=== PATIENT | female | born 1945 | race Caucasian/White ===

== ENCOUNTER 2016-06-23 10:36 | Inpatient (IN) ==
[2016-06-23] MEDS ORDERED: Ondansetron 4 MG/2 ML VIAL IVP PRN (11:42)
[2016-06-23] MEDS ORDERED: Naloxone 0.4 MG/ML INJ IVP PRN (11:42)
--- NOTE | 2016-06-23 11:59 | Internal Med History&Physical ---
Date of Encounter: 06/23/16 Time of Encounter: 11:05 Internal Medicine - H&P: HPI Chief complaint: L wrist swelling and redness after dog bite, sub-optimal response to OP Rx Admitted From: Direct Admit Plans for Post Hospital Care: Home History of present illness: Ms. Spencer is a 70 year old female with medical history significant for hyperlipidemia presents with left wrist swelling and redness after dog bite 6 days ago. She was seperating 2 fighting dogs when she was bitten by one of the dogs. She was evaluated at a local ED on the same day. She was given Td and Augmentin, but was unable to fill the script until the following morning. By mid day, the area of redness and swelling had reached above the elbow. It was since regressed upon filling Augmentin prescription, but remains marked swollen and painful. She was given a dose of IM Ceftriaxone by her PCP yesterday. She reports 2 episodes of diaphoresis but she did not take her temperature at that time. She was evaluated by [facility] orthopedic surgeon this morning , temperature was documented as 100.3F at that visit. The surgeon called Hospitalist Service to assists with admission. She denies other symptoms. A 10- point ROS was performed. She is FULL CODE as per discussion. Medical history: Reports: arthritis, hyperlipidemia. Psychiatric history: Reports: no psych history Smoking Status: non-smoker Alcohol use: Reports: none Drug use: Reports: none Family history: son: diabetic, daughter: insomnia, brother: arthritis, sister: anxiety, hypothyroidism. ROS: A 10-point ROS was performed, positives and relevant negatives are detailed , system-symptom not mentioned is assumed negative unless otherwise stated. Positives: Left wrist swelling, redness, pain diaphoresis, fever. Negatives: No PND or orthopnea., no chest pain no sore-throat, no hemoptysis, hematemesis, or hematochezia, no abdominal pain or diarrhea, no urinary or new- onset neurological symptoms. Not in distress, elderly, non-toxic looking. Not pale, anicteric, afebrile, acyanotic. Moist mucosa. HEENT: No JVD, no cervical lymphadenopathy, Chest : CTAB, diminished generally, especially in the bases. Heart: RRR, HS1/2, no m/r/g. Abdomen: soft, non-tender, no masses, CARD FEEDER: AAO X 3, no gross focal neurological signs. Skin: swollen, erythematous raised lesion on the dorsolateral aspect of left wrist with punctaute open. Erythema up the forearm to just above the elbow is fading, redness is now limited to just above the wrost, Lesions remains raised, no discharge on mamual expression, moderate tenderness Extremities: Trace pedal edema, normal pedal pulses. left cubital and lateral axillary lymphadenopathy. IMP Dog bite cellulitis, sub-optimal response to out-patient care. Chronic morbidities Osteoarthritis Hyperlipidemia PLAN Admit IV Unasyn 3g q6h Ibuprofen and Toradol for pain control Orthopedic surgery plans OR session tomorrow for wash-out. NPO past midnight Elevate left hand-arm above heart level Continue essential medications of chronic morbidities. I discussed my assessment with the patient, she verbalized and is agreeable to admission. She is admitted given she has failed out-patient treatment. Past Med Surg Social Fam HX - Past Medical History Medical history: hyperlipidemia Psychiatric history: no psych history - Past Surgical History Surgical History: hysterectomy - Social History Smoking Status: Never smoker Smokeless Tobacco Status: No Alcohol use: none Drug use: none - Family History Mother Hx Family Cardiac Disorders: Yes (CHF) Hx Family Respiratory Disorders: Yes (Emphysema) Hx Family Endocrine Disorder: Yes (Diabetes) Father Hx Family Cardiac Disorders: Yes (HTN) Internal Medicine - H&P: Meds Atorvastatin Calcium [Lipitor] 20 mg PO HS 03/11/16 [History] Cholecalciferol (Vitamin D3) [Vitamin D] 2,000 unit PO DAILY 03/11/16 [History] Docusate Sodium [Stool Softener] 100 mg PO DAILY 03/11/16 [History] Gabapentin [Neurontin] 300 mg PO HS 03/11/16 [History] Glucosamine Sulfate Dipot Chlr [Glucosamine] 500 mg PO DAILY 03/11/16 [History] [place]ickory-3/Dha/Epa/Fish Oil [[place] 3 500 Softgel] 1 each PO BID 03/11/16 [History] Psyllium Husk [Metamucil] 425 gm PO DAILY 03/11/16 [History] Allergies sulfamethoxazole [From Bactrim] Allergy (Verified 03/11/16 09:48) See Comments trimethoprim [From Bactrim] Allergy (Verified 03/11/16 09:48) See Comments All Systems PM: A 10-system review of systems was performed and is negative for pertinent findings except as documented above in the HPI. - Constitutional Vitals: Temp Pulse Resp BP Pulse Ox 98.1 F 71 16 162/77 99 06/23/16 11:30 06/23/16 11:30 06/23/16 11:30 06/23/16 11:30 06/23/16 11:30 - VTE Reasons for not Prescribing Prophylaxis: Treatment not Indicated - Low risk for VTE
[2016-06-23] MEDS ORDERED: Ampicillin/Sulbactam 3,000 MG in 0.9 % Sodium Chloride Mini Bag 100 ML IVPB ONE (12:03)
[2016-06-23 14:02] LABS: Basophils % 0.5 %; Eosinophils % 0.7 %; Hematocrit 38.9 % (35.3-44.9); Immature Granulocytes % 0.5 % (0-4); Lymphocytes # 1.2 K/mcL (0.6-4.6); Lymphocytes % 21.3 %; Mean Corpuscular HGB Conc 33.4 g/dL (31.6-35.5); Mean Corpuscular Hemoglobin 29.9 pg (28.0-33.3); Mean Corpuscular Volume 89.4 fL (83.0-100.0); Mean Platelet Volume 9.3 fL (9.4-12.4); Monocytes # 0.4 K/mcL (0.0-1.3); Monocytes % 6.7 %; Neutrophils # 4.1 K/mcL (1.6-8.9); Platelet Count 335 K/mcL (140-400); Red Blood Count 4.35 M/mcL (3.82-4.97); Red Cell Distribution Width 13.3 % (11.5-14.5); Segmented Neutrophils % 70.3 %
[2016-06-23 14:16] LABS: BUN/Creatinine Ratio 17 (6-26); Blood Urea Nitrogen 11 mg/dL (7-20); Calcium 9.8 mg/dL (8.6-10.8); Carbon Dioxide 24 mEq/L (19-29); Chloride 103 mEq/L (98-109); Glucose 98 mg/dL (70-99); Osmolality,Calculated 289 (280-300); Sodium 140 mEq/L (136-145); eGFR For African Americans > 60 (> 60); eGFR For Non-African Americans > 60 (> 60)
[2016-06-23] MEDS: Ketorolac 30 MG/ML VIAL IVP PRN (14:59)
--- NOTE | 2016-06-23 17:33 | Orthopedic Consult Note ---
Date of Encounter: 06/23/16 Time of Encounter: 12:00 Assessment and Plan (1) Cellulitis of wrist Current Visit: Yes Status: Acute Left wrist dog bite with resultant cellulitis, nondisplaced distal radius fracture, and probable EPL injury I discussed the diagnoses with the patient in great detail. I did discuss the goals of treatment, the first and foremost being clearance of her infection. She is currently admitted and now on IV antibiotics. We will observe her progress and see how she responds. The patient is aware of the possible need for operative debridement and irrigation to assist in clearance of infection should IV antibiotics alone not be sufficient. The patient is aware of the risk of osteomyelitis given the injury she has to the distal radius and that she may require operative debridement should she not improve with antibiotic treatment. The patient is also aware of the fact that she may require EPL reconstruction in the future as I explained to her that it may not be chung to perform a primary repair given the active infection and edema in the area of injury at this time. She is currently receiving Unasyn, and IV Toradol. I instructed her to elevate her wrist overnight and I will see her again in the morning to assess her clinical status. She was placed in a velcro wrist splint. I will keep her NPO after midnight should she clinically worsen and require an operative debridement. I explained all this to the patient in simple terms and she verbalizes her understanding and wishes to proceed in this fashion. History of Present Illness Chief complaint: Left wrist cellulitis HPI: Cortney is a 70-year-old right-hand dominant female who was admitted due to cellulitis of the left wrist area from a dog bite. The date of the dog bite was on 06/18/2016. She was trying to break up a dog fight. She was bitten by one of her own dogs which was a aguila mix. The dog is up to date on all of its shots. Later that day she went to the emergency department where she was prescribed Augmentin. She followed up with her primary care doc a few days later who referred her to Dr. Davila after getting a shot of Ceftriaxone. Dr. Davila sent her to my office today with concerns for cellulitis and underlying bony involvement. The patient indicates that the redness had gone up her forearm and has improved to some degree with the Augmentin however the left dorsal wrist area remains quite reddened. Pain is localized to this dorsal wrist area and is about a 5 out of 10 to a 10 out of 10 worsened with use of the hand and reaching and improved with pain meds and elevation. She has been immobilized in a removable splint which also helps. She is not had any other treatments. She describes the pain as aching. No numbness, tingling, or any other associated signs or symptoms. She does note that she has not been able to extend the thumb since last night though she was able to in the last few days before last night. Past Med Surg Social Fam HX - Past Medical History Medical history: hyperlipidemia Psychiatric history: no psych history - Past Surgical History Surgical History: hysterectomy - Social History Smoking Status: Never smoker Smokeless Tobacco Status: No Alcohol use: none Drug use: none - Family History Mother Hx Family Cardiac Disorders: Yes (CHF) Hx Family Respiratory Disorders: Yes (Emphysema) Hx Family Endocrine Disorder: Yes (Diabetes) Father Hx Family Cardiac Disorders: Yes (HTN) Medications and Allergies Atorvastatin Calcium [Lipitor] 20 mg PO HS 03/11/16 [History] Cholecalciferol (Vitamin D3) [Vitamin D] 2,000 unit PO DAILY 03/11/16 [History] Glucosamine Sulfate Dipot Chlr [Glucosamine] 500 mg PO DAILY 03/11/16 [History] [place]-3/Dha/Epa/Fish Oil [[place] 3 500 Softgel] 1 each PO BID 03/11/16 [History] Psyllium Husk [Metamucil] 425 gm PO DAILY 03/11/16 [History] Acetaminophen [Tylenol] 500 mg PO Q6HR PRN 06/23/16 [History] Amoxicillin/Clavulanate [Augmentin] 875 mg PO BID 06/23/16 [History] MOM Conc [Milk of Magnesia Conc] 10 - 15 ml PO DAILY 06/23/16 [History] Ra Col-Rite 100 mg PO BID 06/23/16 [History] Tramadol HCl [Ultram] 50 mg PO Q6H PRN 06/23/16 [History] Allergies sulfamethoxazole [From Bactrim] Allergy (Verified 03/11/16 09:48) See Comments trimethoprim [From Bactrim] Allergy (Verified 03/11/16 09:48) See Comments All Systems Reviewed: Constitutional and musculoskeletal systems were reviewed and are negative unless otherwise stated in history of present illness. Physical Exam - Constitutional Vitals: Temp Pulse Resp BP Pulse Ox 98.1 F 71 16 162/77 99 06/23/16 11:30 06/23/16 11:30 06/23/16 11:30 06/23/16 11:30 06/23/16 11:30 CONSTITUTIONAL -Vitals reviewed -The patient is well developed, well nourished, well groomed PSYCHIATRIC -Fully alert and oriented x 3 -Pleasant mood LEFT UPPER EXTREMITY Evaluation of the wrist shows a large patch of intense dorsal erythema skewed towards the radial side of the wrist which goes from about 3 cm proximal to the wrist to about 4-5 cm distal. There is underlying induration in this area as well as two transverse tearing injuries measuring about a centimeter and a half each covered with eschar. On the volar surface of the wrist there are also 2 1-1 /2 cm transverse tearing type lacerations covered with black eschar and some more mild erythema in this area. No other bite reich are seen. No significant erythema in the proximal forearm region. She does hold the thumb in the flexed position and is unable to extend at the IP joint. She is unable to lift the thumb off a flat table. She can flex and extend the remaining digits, cross the index and long fingers and make an okay sign. She is able to flex and extend the wrist without significant discomfort. She has full sensation on all the digits and her radial artery pulses 2+. No pain with active or passive motion of the shoulder or the elbow. I do not appreciate any fluctuant lesions. Results - Labs Result Diagrams: 06/23/16 13:39 06/23/16 13:39 Labs: Abnormal lab results MPV 9.3 fL (9.4-12.4) L 06/23/16 13:39 ESR 60 mm/hr (0-15) H 06/23/16 13:39 C-Reactive Protein 39 mg/L (Less than 5) H 06/23/16 13:39 H & H 06/23/16 Range/Units 13:39 Hgb 13.0 (11.5-15.4) g/dL Hct 38.9 (35.3-44.9) % All other labs normal. - Diagnostic results Wrist/Hand x-ray: image reviewed (Wrist x-ray shows tooth impressions with nondisplaced fracture lines. No retained teeth.) Consult Discharge Plan - Plan Referrals: Ilan De Los Santos, DESTATIC[facility]ER FEEDER [Primary Care Provider] -
[2016-06-23] MEDS: Ampicillin/Sulbactam 3,000 MG in 0.9 % Sodium Chloride Mini Bag 100 ML IVPB SCH (19:35)
--- NOTE | 2016-06-23 19:46 | Anesthesia Evaluation PreOp ---
Date of Encounter: 06/23/16 Time of Encounter: 19:44 - Past History Planned Operation: I&D Left Wrist Cardiac History: Hyperlipidemia Pulmonary History: Denies Any Significant HX [facility] History: Denies Any Significant HX Other Medical History: Other (RA) Anesthesia History: No Prior Anesthetic Complications, Past Anesthesia, Problems (PONV) : No Alcohol Use: none Drug use: none Medications and Allergies Atorvastatin Calcium [Lipitor] 20 mg PO HS 03/11/16 [History] Cholecalciferol (Vitamin D3) [Vitamin D] 2,000 unit PO DAILY 03/11/16 [History] Glucosamine Sulfate Dipot Chlr [Glucosamine] 500 mg PO DAILY 03/11/16 [History] Erin-3/Dha/Epa/Fish Oil [Erin 3 500 Softgel] 1 each PO BID 03/11/16 [History] Psyllium Husk [Metamucil] 425 gm PO DAILY 03/11/16 [History] Acetaminophen [Tylenol] 500 mg PO Q6HR PRN 06/23/16 [History] Amoxicillin/Clavulanate [Augmentin] 875 mg PO BID 06/23/16 [History] MOM Conc [Milk of Magnesia Conc] 10 - 15 ml PO DAILY 06/23/16 [History] Ra Col-Rite 100 mg PO BID 06/23/16 [History] Tramadol HCl [Ultram] 50 mg PO Q6H PRN 06/23/16 [History] Allergies sulfamethoxazole [From Bactrim] Allergy (Verified 03/11/16 09:48) See Comments trimethoprim [From Bactrim] Allergy (Verified 03/11/16 09:48) See Comments - Meds/Allergy Pre-op Review Medications Reviewed: Yes Allergies Reviewed: Yes Beta Blockers on Current Med List: No Anesthesia Results - Labs 06/23/16 13:39 06/23/16 13:39 Anesthesia Exam Vital Signs/O2 Sat, Most Current Temp Pulse Resp BP Pulse Ox 98.1 F 71 16 162/77 99 06/23/16 11:30 06/23/16 11:30 06/23/16 11:30 06/23/16 11:30 06/23/16 11:30 O2 Sat Height 1.6 m Weight 54.431 kg O2 Sat by Pulse Oximetry 99 Vital Signs Temp Pulse Resp BP Pulse Ox 98.1 F 71 16 162/77 99 06/23/16 11:30 06/23/16 11:30 06/23/16 11:30 06/23/16 11:30 06/23/16 11:30 Height: 5'3'' Weight: 120# NPO (# of Hours): >8 hrs Pain Scale: 0 Pain Scale Used: Numeric (1 - 10) - HEENT Pupil (Motor): Pupils equal, EOMI - [facility] LOC: Oriented [facility] Motor: Normal RUE, Normal LUE, Normal RLE, Normal LLE, Normal Face [facility] Sensory: Normal: RUE, LUE, RLE, LLE, Face - Cardiac Rhythm: Regular Murmur: None JVD: No Carotid Bruit: No - Pulmonary Breath Sounds: bilateral Clear Respiratory Effort: Symmetrical Anesthesia Assess/Plan ASA Score: 2 Modified Cinthia Scale for Level of Consciousness: Cooperative, oriented, and tranquil Anesthetic Plan: General Autologous Blood: Yes Monitoring Plan: Standard Monitors Recovery Plan: PACU
[2016-06-23] MEDS: Famotidine 20 MG TABLET PO SCH (21:51)
[2016-06-23] MEDS: Ibuprofen 600 MG TABLET PO PRN (21:51)
[2016-06-24] MEDS: Ampicillin/Sulbactam 3,000 MG in 0.9 % Sodium Chloride Mini Bag 100 ML IVPB SCH ×5 (01:17→23:49)
[2016-06-24] MEDS: Ibuprofen 600 MG TABLET PO PRN (06:53)
--- NOTE | 2016-06-24 07:44 | Orthopedics Progress Note ---
Date of Encounter: 06/24/16 Time of Encounter: 07:39 - Assessment and Plan (1) Cellulitis of wrist Current Visit: Yes Status: Acute Subjective Interval history: S: Significantly improved with elevation, antiinflammatories, and Unasyn. She has been elevating. No new complaints. O: Afeb, VSS Significant improvement in the erythema both in terms of area and intensity. Induration much softer dorsally. Tenderness only mild dorsally. Fingers freely mobile, though cannot extend thumb off a flat surface. No significant pain with wrist motion. Fingers are sensate and well perfused A: Improving Cellulitis on IV abx; Likely EPL injury P: Because of the significant improvement just overnight, my recommendation is to hold off on surgical debridement and watch another 24 hours on IV abx. Continue elevation and NSAIDs Continue splint for the distal radius fracture Will hold off on treatment of the EPL injuyr until the infection is cleared I will reevaluate her clinically tomorrow morning Objective Vital signs: Vital Signs Temp Pulse Resp BP Pulse Ox 06/24/16 06:57 98.0 F 72 16 128/78 96 06/24/16 05:03 98.7 F 82 14 130/79 98 06/24/16 01:06 97.9 F 78 15 121/73 98 06/23/16 21:11 98.3 F 83 17 124/77 95 06/23/16 11:30 98.1 F 71 16 162/77 99 Intake and Output 06/23/16 06/23/16 06/24/16 15:59 23:59 07:59 Intake Total 0 / 0 200 / 200 100 / 100 Balance 0 / 0 200 / 200 100 / 100 Intake: IV Fluids 200 / 200 100 / 100 Unasyn 3,000 MG In 0.9 % 200 / 200 100 / 100 Sodium Chloride (Mini-Bag +) 100 ML @ 200 mls/hr IVPB Q6H STEPHANIE Rx#: [id number] Oral 0 / 0 Other: # Voids 1 2 Weight 54.431 kg - Labs CBC & BMP: 06/23/16 13:39 06/23/16 13:39 Labs: Abnormal lab results MPV 9.3 fL (9.4-12.4) L 06/23/16 13:39 ESR 60 mm/hr (0-15) H 06/23/16 13:39 C-Reactive Protein 39 mg/L (Less than 5) H 06/23/16 13:39 - VTE Reasons for not Prescribing Prophylaxis: Treatment not Indicated - Low risk for VTE Consult Discharge Plan - Plan Referrals: Ilan De Los Santos, SEAN [Primary Care Provider] -
[2016-06-24] MEDS: Psyllium 1 PACKET POWD.PACK PO SCH (08:29)
[2016-06-24] MEDS: Famotidine 20 MG TABLET PO SCH ×2 (08:30→21:11)
[2016-06-24] MEDS: Cholecalciferol (D-3) 1,000 UNIT TABLET PO SCH (08:31)
[2016-06-24] MEDS ORDERED: MOM Conc 10 ML UD.LIQ PO PRN (10:59)
[2016-06-24] MEDS: *HR* Heparin 5,000 UNIT/ML VIAL SQ SCH ×3 (11:51→23:49)
[2016-06-24] MEDS: traMADol 50 MG TABLET PO PRN ×2 (11:59→23:50)
--- NOTE | 2016-06-24 14:56 | Internal Med Progress Note ---
Date of Encounter: 06/24/16 Time of Encounter: 09:30 - Assessment and plan (1) Cellulitis of wrist Current Visit: Yes Status: Acute Assessment and plan: Surgical eval appreciated continue IV Unasyn pain control daily wound care (2) Constipation Current Visit: Yes Status: Chronic Assessment and plan: restarted home medications Qualifiers: Constipation type: unspecified constipation type Qualified Code(s): K59.00 - Constipation, unspecified (3) Hyperlipemia Current Visit: Yes Status: Chronic Assessment and plan: continue home medications Qualifiers: Hyperlipidemia type: unspecified Qualified Code(s): E78.5 - Hyperlipidemia , unspecified (4) DVT prophylaxis Current Visit: Yes Status: Acute Assessment and plan: heparin sq - Subjective Interval history: Patient seen and examined. Resting comfortably in chair and states she feels better compared to the previous day. Left arm in splint.dressing was changed by ortho this morning and due to improvement with IV abx, surgery was postponed for now. Patient reports of adequate pain relief with the current pain medications however reports of having chronic constipation. She would like to get her home dosages of colace and milk of mag. - Constitutional Vitals: Temp Pulse Resp BP Pulse Ox 98.5 F 83 16 115/66 96 06/24/16 10:57 06/24/16 10:57 06/24/16 10:57 06/24/16 10:57 06/24/16 10:57 General appearance: Present: cooperative, A&O X 3, pleasant, no acute distress, answers questions appropriately - Head Head exam: Present: atraumatic, normocephalic - Eye Eye exam: Present: conjuntiva pink, sclera anicteric - Respiratory Respiratory exam: Present: CTAB. Absent: respiratory distress, wheezes - Cardiovascular Cardiovascular exam: Present: RRR, +S1, +S2 - GI/Abdominal GI/Abdominal exam: Present: normal bowel sounds, soft. Absent: distended, tenderness - Extremities Exam Extremities exam: Present: warm, radial pulses palpable and symetrical. Absent : calf tenderness, pedal edema, tenderness (left distal arm in sling) - Neurological Exam Neurological exam: Present: alert, oriented X3, no focal deficits - Psychiatric Psychiatric exam: Present: normal affect, normal mood Internal Medicine: Result - Labs CBC & Chem 7: 06/23/16 13:39 06/23/16 13:39 - VTE Reasons for not Prescribing Prophylaxis: Treatment not Indicated - Low risk for VTE Consult Discharge Plan - Plan Referrals: Ilan De Los Santos, SEAN [Primary Care Provider] - 07/03/16 11:40 am
[2016-06-24] MEDS: Ketorolac 30 MG/ML VIAL IVP PRN (19:52)
[2016-06-25 04:46] LABS: Basophils # 0.1 K/mcL (0.0-0.2); Basophils % 0.9 %; Eosinophils # 0.2 K/mcL (0.0-0.6); Eosinophils % 3.4 %; Hematocrit 35.5 % (35.3-44.9); Hemoglobin 11.5 g/dL (11.5-15.4); Immature Granulocytes % 0.4 % (0-4); Lymphocytes % 33.5 %; Mean Corpuscular HGB Conc 32.4 g/dL (31.6-35.5); Mean Corpuscular Hemoglobin 29.6 pg (28.0-33.3); Mean Corpuscular Volume 91.3 fL (83.0-100.0); Mean Platelet Volume 9.4 fL (9.4-12.4); Monocytes # 0.6 K/mcL (0.0-1.3); Monocytes % 8.5 %; Neutrophils # 3.6 K/mcL (1.6-8.9); Platelet Count 310 K/mcL (140-400); Red Blood Count 3.89 M/mcL (3.82-4.97); Red Cell Distribution Width 13.5 % (11.5-14.5); Segmented Neutrophils % 53.3 %
[2016-06-25 04:51] LABS: Lymphocytes # 2.2 K/mcL (0.6-4.6)
[2016-06-25 04:55] LABS: BUN/Creatinine Ratio 24 (6-26); Blood Urea Nitrogen 16 mg/dL (7-20); Calcium 9.2 mg/dL (8.6-10.8); Carbon Dioxide 24 mEq/L (19-29); Chloride 106 mEq/L (98-109); Glucose 95 mg/dL (70-99); Magnesium 1.9 mg/dL (1.6-2.6); Osmolality,Calculated 289 (280-300); Phosphorous 4.2 mg/dL (2.3-4.7); Potassium 4.3 mEq/L (3.5-4.5); Sodium 139 mEq/L (136-145); eGFR For African Americans > 60 (> 60); eGFR For Non-African Americans > 60 (> 60)
[2016-06-25 05:11] LABS: Platelet Estimate Normal (Normal); Reactive Lymphocytes Present (Not Present)
[2016-06-25] MEDS: *HR* Heparin 5,000 UNIT/ML VIAL SQ SCH ×2 (06:07→14:58)
[2016-06-25] MEDS: Ampicillin/Sulbactam 3,000 MG in 0.9 % Sodium Chloride Mini Bag 100 ML IVPB SCH ×3 (06:09→17:54)
[2016-06-25] MEDS: Famotidine 20 MG TABLET PO SCH ×2 (07:24→20:30)
[2016-06-25] MEDS: Cholecalciferol (D-3) 1,000 UNIT TABLET PO SCH (07:24)
[2016-06-25] MEDS: traMADol 50 MG TABLET PO PRN ×2 (07:24→22:35)
[2016-06-25] MEDS: Psyllium 1 PACKET POWD.PACK PO SCH (07:41)
--- NOTE | 2016-06-25 07:52 | Orthopedics Progress Note ---
Date of Encounter: 06/25/16 Time of Encounter: 07:49 - Assessment and Plan (1) Cellulitis of wrist Current Visit: Yes Status: Acute Subjective Interval history: S: Pain minimal to the left wrist, described as a slight burning pain localized dorsally. O: Afeb, VSS Erythema almost completely resolved. Mild ecchymosis dorsally around tooth reich persists. Induration almost completely resolved. Minimal dorsal tenderness. Fingers freely mobile, though cannot extend thumb off a flat surface. No significant pain with wrist motion. Fingers are sensate and well perfused A: Improving Cellulitis on IV abx; Likely EPL injury P: Doing well overall; Would recommend 1 more day of IV antibiotics, and switch to orals tomorrow. No plans for surgical intervention. Continue elevation and NSAIDs. Continue splint for the distal radius fracture. Will hold off on treatment of the EPL injury until the infection is cleared. I will reevaluate her clinically tomorrow morning. Objective Vital signs: Vital Signs Temp Pulse Resp BP Pulse Ox 06/25/16 03:24 98.1 F 80 13 136/71 100 06/24/16 22:47 98.4 F 73 14 123/75 99 06/24/16 19:17 98.3 F 79 14 136/81 98 06/24/16 15:11 97.5 F L 83 14 134/85 97 06/24/16 10:57 98.5 F 83 16 115/66 96 Intake and Output 06/24/16 06/24/16 06/25/16 15:59 23:59 07:59 Intake Total 240 / 240 400 / 400 200 / 200 Output Total 0 / 0 150 / 150 Balance 240 / 240 250 / 250 200 / 200 Intake: IV Fluids 200 / 200 200 / 200 Unasyn 3,000 MG In 0.9 % 200 / 200 200 / 200 Sodium Chloride (Mini-Bag +) 100 ML @ 200 mls/hr IVPB Q6H STEPHANIE Rx#: [id number] Oral 240 / 240 200 / 200 0 / 0 Output: Urine 0 / 0 150 / 150 Other: Meal Lunch Percent of Meal Consumed 75% # Voids 2 Weight 55.792 kg Blood Glucose* 94 Patient Weight 06/25/16 23:59 Weight 55.792 kg - Labs CBC & BMP: 06/25/16 04:12 06/25/16 04:12 Labs: Abnormal lab results Reactive Lymphocytes Present (Not Present) A 06/25/16 04:12 ESR 60 mm/hr (0-15) H 06/23/16 13:39 POC Glucose 94 (58-89) H 06/25/16 05:35 C-Reactive Protein 39 mg/L (Less than 5) H 06/23/16 13:39 - VTE Reasons for not Prescribing Prophylaxis: Treatment not Indicated - Low risk for VTE Consult Discharge Plan - Plan Referrals: Ilan De Los Santos CNP [Primary Care Provider] - 07/03/16 11:40 am
[2016-06-25] MEDS ORDERED: ALPRAZolam 0.25 MG TABLET PO PRN (11:47)
--- NOTE | 2016-06-25 11:47 | Internal Med Progress Note ---
Date of Encounter: 06/25/16 Time of Encounter: 11:45 - Assessment and plan (1) Cellulitis of wrist Current Visit: Yes Status: Acute Assessment and plan: Surgical eval appreciated continue IV Unasyn pain control daily wound care likely switch to PO abx in am and d/c (2) Constipation Current Visit: Yes Status: Chronic Assessment and plan: changed to Colace BID in addition to home medications Qualifiers: Constipation type: unspecified constipation type Qualified Code(s): K59.00 - Constipation, unspecified (3) Hyperlipemia Current Visit: Yes Status: Chronic Assessment and plan: continue home medications Qualifiers: Hyperlipidemia type: unspecified Qualified Code(s): E78.5 - Hyperlipidemia , unspecified (4) DVT prophylaxis Current Visit: Yes Status: Acute Assessment and plan: heparin sq (5) Anxiety Current Visit: Yes Status: Acute Assessment and plan: Will add Xanax 0.25mg PO qhs prn anxiety - Subjective Interval history: Patient seen and examined. Resting comfortably in chair and states she feels better compared to the previous day. Left arm in splint.dressing was changed by ortho this morning. One more day of IV abx, no surgical intervention at this time. Reported of having severe anxiety overnight. States she recently lost her and being in the hospital is making it difficult for her to stay calm, however denies any anxiety at this time. - Constitutional Vitals: Temp Pulse Resp BP Pulse Ox 98.0 F 74 12 148/79 97 06/25/16 07:50 06/25/16 07:50 06/25/16 07:50 06/25/16 07:50 06/25/16 07:50 General appearance: Present: cooperative, A&O X 3, pleasant, no acute distress, answers questions appropriately - Head Head exam: Present: atraumatic, normocephalic - Eye Eye exam: Present: normal appearance, conjuntiva pink, sclera anicteric - Respiratory Respiratory exam: Present: CTAB. Absent: respiratory distress, wheezes - Cardiovascular Cardiovascular exam: Present: RRR, +S1, +S2 - GI/Abdominal GI/Abdominal exam: Present: normal bowel sounds, soft. Absent: distended, tenderness - Extremities Exam Extremities exam: Present: warm, radial pulses palpable and symetrical (LUE distal arm in splint). Absent: pedal edema, tenderness - Neurological Exam Neurological exam: Present: alert, oriented X3 - Psychiatric Psychiatric exam: Present: normal affect, normal mood Internal Medicine: Result - Labs CBC & Chem 7: 06/25/16 04:12 06/25/16 04:12 Labs: Short CBC 06/25/16 Range/Units 04:12 WBC 6.7 (4.3-11.1) K/mcL Hgb 11.5 D (11.5-15.4) g/dL Hct 35.5 (35.3-44.9) % Plt Count 310 (140-400) K/mcL Neutrophils # 3.6 (1.6-8.9) K/mcL BMP 06/25/16 04:12 Sodium 139 Potassium 4.3 Chloride 106 Carbon Dioxide 24 BUN 16 Creatinine 0.67 Glucose 95 Calcium 9.2 - VTE Reasons for not Prescribing Prophylaxis: Treatment not Indicated - Low risk for VTE Consult Discharge Plan - Plan Referrals: Ilan De Los Santos CNP [Primary Care Provider] - 07/03/16 11:40 am
[2016-06-25] MEDS: Ketorolac 30 MG/ML VIAL IVP PRN (13:04)
[2016-06-25] MEDS: MOM Conc 10 ML UD.LIQ PO SCH (13:08)
[2016-06-25] MEDS ORDERED: Ketorolac 15 MG/ML VIAL IVP PRN (14:24)
[2016-06-25] MEDS ORDERED: 0.9 % Sodium Chloride Mini Bag 100 ML ONE (17:53)
[2016-06-26] MEDS: Ampicillin/Sulbactam 3,000 MG in 0.9 % Sodium Chloride Mini Bag 100 ML IVPB SCH ×2 (00:06→05:59)
[2016-06-26] MEDS: *HR* Heparin 5,000 UNIT/ML VIAL SQ SCH ×2 (00:06→05:59)
[2016-06-26 04:42] LABS: Basophils # 0.1 K/mcL (0.0-0.2); Basophils % 0.7 %; Eosinophils # 0.3 K/mcL (0.0-0.6); Eosinophils % 3.4 %; Hematocrit 34.3 % (35.3-44.9); Hemoglobin 11.1 g/dL (11.5-15.4); Immature Granulocytes % 0.4 % (0-4); Lymphocytes % 31.9 %; Mean Corpuscular HGB Conc 32.4 g/dL (31.6-35.5); Mean Corpuscular Hemoglobin 29.7 pg (28.0-33.3); Mean Corpuscular Volume 91.7 fL (83.0-100.0); Mean Platelet Volume 9.4 fL (9.4-12.4); Monocytes # 0.6 K/mcL (0.0-1.3); Neutrophils # 4.7 K/mcL (1.6-8.9); Platelet Count 305 K/mcL (140-400); Red Blood Count 3.74 M/mcL (3.82-4.97); Red Cell Distribution Width 13.4 % (11.5-14.5); Segmented Neutrophils % 56.6 %
[2016-06-26 04:45] LABS: Lymphocytes # 2.7 K/mcL (0.6-4.6)
[2016-06-26 05:00] LABS: BUN/Creatinine Ratio 19 (6-26); Blood Urea Nitrogen 13 mg/dL (7-20); Calcium 8.9 mg/dL (8.6-10.8); Carbon Dioxide 26 mEq/L (19-29); Chloride 106 mEq/L (98-109); Glucose 96 mg/dL (70-99); Magnesium 2.3 mg/dL (1.6-2.6); Osmolality,Calculated 290 (280-300); Phosphorous 3.6 mg/dL (2.3-4.7); Potassium 4.3 mEq/L (3.5-4.5); Sodium 140 mEq/L (136-145); eGFR For African Americans > 60 (> 60); eGFR For Non-African Americans > 60 (> 60)
[2016-06-26 05:13] LABS: Platelet Estimate Normal (Normal)
[2016-06-26 05:14] LABS: Reactive Lymphocytes Present (Not Present)
[2016-06-26] MEDS: traMADol 50 MG TABLET PO PRN (06:46)
--- NOTE | 2016-06-26 07:23 | Orthopedics Progress Note ---
Date of Encounter: 06/26/16 Time of Encounter: 07:21 - Assessment and Plan (1) Cellulitis of wrist Current Visit: Yes Status: Acute Subjective Interval history: S: No new complaints. Pain well controlled and minimal. O: Afeb, VSS Erythema essentially resolved. Mild ecchymosis dorsally around tooth reich persists. No significant tenderness. Fingers freely mobile, though cannot extend thumb off a flat surface. No significant pain with wrist motion. Fingers are sensate and well perfused A: Cellulitis essentially resolved on IV abx; Likely EPL injury P: Doing well overall Can switch to Augmentin from my standpoint. Would recommend at least a 7 day course of Augmentin Continue elevation and NSAIDs. Continue splint for the distal radius fracture. NWB to the E Will reevaluate the EPL on an outpatient basis. Orthopedically stable for discharge. Follow up with me in the office on Wednesday for a wound check. Objective Vital signs: Vital Signs Temp Pulse Resp BP Pulse Ox 06/26/16 03:39 97.8 F 73 16 111/66 98 06/25/16 23:56 97.8 F 79 16 126/73 96 06/25/16 20:01 98.4 F 103 17 162/77 95 06/25/16 16:25 97.9 F 80 16 123/75 94 L 06/25/16 11:53 97.7 F 69 16 139/66 95 06/25/16 07:50 98.0 F 74 12 148/79 97 Intake and Output 06/25/16 06/25/16 06/26/16 15:59 23:59 07:59 Intake Total 340 / 340 350 / 350 500 / 500 Output Total 650 / 650 250 / 250 Balance 340 / 340 -300 / -300 250 / 250 Intake: IV Fluids 100 / 100 100 / 100 200 / 200 Unasyn 3,000 MG In 0.9 % 100 / 100 100 / 100 200 / 200 Sodium Chloride (Mini-Bag +) 100 ML @ 200 mls/hr IVPB Q6H STEPHANIE Rx#: [id number] Oral 240 / 240 250 / 250 300 / 300 Output: Urine 650 / 650 250 / 250 Other: Meal Lunch water pitcher Percent of Meal Consumed 80% 90% # Voids 2 Weight 56.3 kg Patient Weight 06/26/16 23:59 Weight 56.3 kg - Labs CBC & BMP: 06/26/16 04:19 06/26/16 04:19 Labs: Abnormal lab results RBC 3.74 M/mcL (3.82-4.97) L 06/26/16 04:19 Hgb 11.1 g/dL (11.5-15.4) L 06/26/16 04:19 Hct 34.3 % (35.3-44.9) L 06/26/16 04:19 Reactive Lymphocytes Present (Not Present) A 06/26/16 04:19 ESR 60 mm/hr (0-15) H 06/23/16 13:39 POC Glucose 94 (58-89) H 06/25/16 05:35 C-Reactive Protein 39 mg/L (Less than 5) H 06/23/16 13:39 - VTE Reasons for not Prescribing Prophylaxis: Treatment not Indicated - Low risk for VTE Consult Discharge Plan - Plan Referrals: Ilan De Los Santos, CERTIFIED REGISTERED NURSE ANESTHETIST [Primary Care Provider] - 07/03/16 11:40 am
[2016-06-26] MEDS: Famotidine 20 MG TABLET PO SCH (07:25)
[2016-06-26] MEDS: Cholecalciferol (D-3) 1,000 UNIT TABLET PO SCH (07:25)
[2016-06-26] MEDS: MOM Conc 10 ML UD.LIQ PO SCH (07:26)
[2016-06-26] MEDS: Psyllium 1 PACKET POWD.PACK PO SCH (07:26)
[2016-06-26 07:57] VITALS: BP 130/82
--- NOTE | 2016-06-26 10:21 | Discharge Summary ---
Date of Encounter: 06/26/16 Time of Encounter: 10:39 - Discharge Diagnosis (1) Cellulitis of wrist Priority: Primary Status: Acute (2) Constipation Priority: Secondary Status: Chronic Qualifiers: Constipation type: unspecified constipation type Qualified Code(s): K59.00 - Constipation, unspecified (3) Hyperlipemia Priority: Secondary Status: Chronic Qualifiers: Hyperlipidemia type: unspecified Qualified Code(s): E78.5 - Hyperlipidemia , unspecified (4) DVT prophylaxis Priority: Secondary Status: Acute (5) Anxiety Priority: Secondary Status: Acute - Discharge Medications Prescriptions: Amoxicillin/Clavulanate [Augmentin] 875 mg PO BID #14 tablet Tramadol HCl [Ultram] 50 mg PO Q6H PRN #20 tablet PRN Reason: Pain Home Medications: Atorvastatin Calcium [Lipitor] 20 mg PO HS 03/11/16 [History] Cholecalciferol (Vitamin D3) [Vitamin D3] 2,000 unit PO DAILY 03/11/16 [History] Glucosamine Sulfate Dipot Chlr [Glucosamine] 500 mg PO DAILY 03/11/16 [History] [place]-3/Dha/Epa/Fish Oil [[place] 3 500 Softgel] 1 each PO BID 03/11/16 [History] Psyllium Husk [Metamucil] 425 gm PO DAILY 03/11/16 [History] Acetaminophen [Tylenol] 500 mg PO Q6HR PRN 06/23/16 [History] MOM Conc [MILK OF MAGNESIA conc] 10 - 15 ml PO DAILY 06/23/16 [History] Ra Col-Rite 100 mg PO BID 06/23/16 [History] Amoxicillin/Clavulanate [Augmentin] 875 mg PO BID #14 tablet 06/26/16 [Rx] Tramadol HCl [Ultram] 50 mg PO Q6H PRN #20 tablet 06/26/16 [Rx] Allergies/Adverse Reactions: Allergies sulfamethoxazole [From Bactrim] Allergy (Verified 03/11/16 09:48) See Comments trimethoprim [From Bactrim] Allergy (Verified 03/11/16 09:48) See Comments Date of admission: 06/23/16 12:20 Primary care physician: Ilan De Los Santos CNP Consults: 06/23/16 11:39 Consult to Pastoral Services [CONS] Routine Comment: 06/23/16 11:49 Consult to Orthopedic Surgery [CONS] Routine Consulting Provider: [facility] Reason for Consult: Dog bite cellulitis, failed out-patient treatment. Call Completed: Yes Discharging clinician: Gypsy Martinez Anticipated date of discharge: 06/26/16 - Patient Status Disposition: Home, Self-Care Condition: Good Functional capacity at discharge: independent ambulation Overall status at discharge: patient is back to baseline - Discharge Instructions Follow Up With: Ilan De Los Santos MONUMENT MASON [Primary Care Provider] - 07/03/16 11:40 am Additional Instructions: Please follow-up with your primary care physician within one week after discharge from the hospital Please follow-up with surgery/Wound Care on 06/28/2016. Please continue oral antibiotics as prescribed. Please resume all usual home medications as prescribed by your primary care physician. - Diet and Activity Activity: resume usual activities as tolerated Diet: advance to your usual diet, low fat, low cholesterol Hospital course: Ms. Spencer is a 70 year old female with past medical history of hyperlipidemia, arthritis who was admitted for left wrist swelling and erythema secondary to a dog bite. Surgery was consulted and nonoperative management was recommended. Patient's symptoms improved significantly with IV antibiotics. Daily wound care was provided by surgery. Patient is currently doing well with appropriate pain control and improvement in her wound swelling and erythema. Patient will be discharged to home with oral antibiotics for 7 days, follow up with surgery, and wound care. Patient is to follow-up with wound care on Wednesday. Patient demonstrates understanding of her diagnosis and agrees with her discharge care, and plan. - Time Spent with Patient Total time spent providing and/or coordinating discharge services: Less than 30 minutes - Constitutional Vitals: Temp Pulse Resp BP Pulse Ox 97.8 F 76 14 130/82 97 06/26/16 07:52 06/26/16 07:52 06/26/16 07:52 06/26/16 07:52 06/26/16 07:52 General appearance: Present: cooperative, A&O X 3, pleasant, no acute distress, answers questions appropriately - Head Head exam: Present: atraumatic, normocephalic - Eye Eye exam: Present: normal appearance, conjuntiva pink, sclera anicteric - Respiratory Respiratory exam: Present: CTAB. Absent: respiratory distress, wheezes - Cardiovascular Cardiovascular exam: Present: RRR, +S1, +S2 - GI/Abdominal GI/Abdominal exam: Present: normal bowel sounds, soft. Absent: tenderness - Extremities Exam Extremities exam: Present: warm, radial pulses palpable and symetrical (Lt distal arm in splint/dressing intact). Absent: pedal edema, tenderness - Neurological Exam Neurological exam: Present: alert, oriented X3 - Psychiatric Psychiatric exam: Present: normal affect, normal mood - VTE Reasons for not Prescribing Prophylaxis: Treatment not Indicated - Low risk for VTE
== END 2016-06-26 12:05 | disposition home or self-care (01) | DRG 603 ==
LOC: 3NENU → 3ANU 06-24 11:36
PROVIDERS: ADMIT Family Medicine; ATTEND Internal Medicine